=== PATIENT | female | born 1980 | race Caucasian/White ===

== ENCOUNTER 2017-09-04 13:05 | Emergency (ER) | payer OTHER ==
[~2017-09-04] VITALS: Ht 157.5 cm; Wt 49.5 kg
[2017-09-04 13:16] VITALS: Ht 157.5 cm; Wt 49.5 kg
[2017-09-04] MEDS ORDERED: METO10TA92 PO (14:42)
--- NOTE | 2017-09-04 14:52 | ERD ---
ER Documentation Chief Complaint Date/Time DATE: 09/04/17 TIME: 14:49 Chief Complaint Complains of palpitations HPI Patient is a 36-year-old female who is approximately 7 weeks complaining of nausea. No vomiting. This is been going on for several weeks. She has no abdominal pain. No vaginal bleeding. No dysuria hematuria or frequency. She is also complaining of intermittent palpitations over the past 2 weeks. No chest pain. She states it all started when her mother recently in [place] 2 weeks ago. She states that since then she has had intermittent palpitations but denies any chest pain. She is taking vitamins. ROS All systems reviewed and are negative except as per history of present illness. Medications Home Meds Active Scripts Metoclopramide* (Reglan*) 10 Mg Tablet, 10 MG PO Q6 Y for NAUSEA AND/OR VOMITING , #20 TAB Prov:TALHA THAO PA-C 09/04/17 PMhx/Soc History of Surgery: Yes () Hx Miscellaneous Medical Probl: Yes (gerd) Hx Alcohol Use: No Hx Substance Use: No Hx Tobacco Use: No FmHx Family History: No diabetes Physical Exam Vitals Vital Signs Date Time Temp Pulse Resp B/P Pulse Ox O2 Delivery O2 Flow Rate FiO2 09/04/17 13:16 98.7 74 20 107/66 99 Physical Exam INITIAL VITAL SIGNS: Reviewed by me GENERAL: Awake, alert and oriented x 4, well appearing, nontoxic, speaking in full sentences. No acute distress HEAD: Atraumatic. RESPIRATORY: Clear to auscultation bilaterally. Symmetric chest wall rise. No wheezing or rales. No accessory muscle use. CV: Regular rate and rhythm. No murmurs, rubs, or gallops. ABDOMEN: Soft, non-distended. Nontender. Negative [place]. Negative McBurneys point tenderness. No CVA tenderness bilaterally. No guarding. No rebound. Results 24 hrs Current Medications Medications (Trade) Dose Ordered Sig/Petra Route PRN Reason Start Time Stop Time Status Last Admin Dose Admin Metoclopramide HCl (Reglan) 10 mg ONCE ONCE PO 09/04/17 15:00 09/04/17 15:01 Procedures/MDM 36-year-old female presents with nausea during . Also intermittent palpitations which is most likely secondary to anxiety and stress from her mother recently passing away. At this time her vital signs are within normal limits and she is not tachycardic and EKG was also normal sinus rhythm with no evidence of ST elevation or acute ischemic changes. She has no abdominal pain, urinary symptoms, or vaginal bleeding. I offered her OB workup including labs and ultrasound and urine but she declined and just wanted prescription for nausea medication so she was given Reglan here and a prescription for Reglan. Patient counseled regarding my diagnostic impression and care plan. Prior to discharge all questions answered. Pt agrees with treatment plan and understands strict return precautions. Pt is instructed to follow up with primary care provider within 24-48 hours. Precautionary instructions provided including instructions to return to the ER if not improving or for any worsening or changing symptoms or concerns. Departure Diagnosis: Primary Impression: Nausea and vomiting during Additional Impression: Palpitations Condition: Stable Patient Instructions: Vomiting And Diarrhea, Nonspecific (Adult) Additional Instructions: Llame al doctor MAANA y sugey william NAMRATA PARA DENTRO DE 1-2 ORR.Dgale a la secretaria que nosotros le instruimos hacer esta namrata.Avise o llame si tan condicin se empeora antes de la namrata. Regresa aqui si peor o no mejor. TALHA THAO PA-C Sep 04, 2017 14:52
[2017-09-04] MEDS ORDERED: METOCLOPRAMIDE 10 MG TAB PO ONE (15:00)
[2017-09-04 15:20] VITALS: BP 107/72; PULSE 95; RESP 17; TEMP 97.8
== END 2017-09-04 15:23 | disposition home or self-care (01) ==
LOC: FTE 13:05
DX: O99.89 Other specified diseases and conditions complicating pregnancy, childbirth and the puerperium (principal); R00.2 Palpitations; O21.9 Vomiting of pregnancy, unspecified; Z3A.00 Weeks of gestation of pregnancy not specified
CPT/HCPCS: 93005; 99283